=== PATIENT | female | born 1990 | race Caucasian/White ===

== ENCOUNTER → 2018-07-13 | Day surgery (SDC) | payer OTHER ==
[~2018-07-13] VITALS: Ht 157.5 cm; Wt 95.2 kg
[2018-07-13 08:42] VITALS: BP 114/75
[2018-07-13 15:18] VITALS: BP 120/59
== END | disposition home or self-care (01) ==
LOC: DS 07:52 → OR 09:00
PROVIDERS: Obstetrics & Gynecology
PROC: 0UBC7ZX Excision of Cervix, Via Natural or Artificial Opening, Diagnostic (ICD-10-PCS; principal; 2018-07-13 14:30)
DX: N87.9 Dysplasia of cervix uteri, unspecified (principal); J45.909 Unspecified asthma, uncomplicated
CPT/HCPCS: C1758; J0690; J1885; J3010